=== PATIENT | male | born 1955 | race Caucasian/White ===

== ENCOUNTER 2019-07-05 15:05 | Emergency (ER) | payer BC ==
[~2019-07-05] VITALS: Ht 175.2 cm; Wt 63.5 kg
--- NOTE | ~2019-07-05 | EKG ---
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
[2019-07-05 16:24] LABS: BASO % 0.4 % (0.0-1.0); EOS # 0.1 10*3/uL (0.0-0.4); HEMATOCRIT 38.4 % (42.0-52.0); HEMOGLOBIN 12.5 g/dl (14.0-18.0); LYMPH # 0.9 10*3/uL (1.3-4.4); LYMPH % 9.7 % (27.0-41.0); MEAN CELL VOLUME 98.5 fl (80.0-94.0); MEAN CORPUSCULAR HGB 32.1 pg (27.0-31.0); MEAN CORPUSCULAR HGB CONC 32.6 g/dl (33.0-37.0); MEAN PLATELET VOLUME 10.3 fl (9.6-12.3); MONO # 0.9 10*3/uL (0.1-1.0); MONO % 10.1 % (3.0-9.0); NEUT # 7.3 10*3/uL (2.3-7.9); NEUT % 78.4 % (47.0-73.0); PLATELET COUNT AUTOMATED 269 10*3/uL (130-400); RED CELL DISTRI WIDTH 13.1 % (0-14.5); WHITE BLOOD COUNT 9.3 10*3/uL (4.8-10.8)
[2019-07-05 16:43] LABS: ALBUMIN 3.1 gm/dl (3.1-4.5); ALKALINE PHOSPHATASE 211 U/L (45-117); BUN 18 mg/dl (7-24); CHLORIDE 104 mmol/L (98-107); CREATININE 0.73 mg/dL (0.70-1.30); POTASSIUM 3.8 mmol/L (3.5-5.1); SGOT/AST 102 IU/L (3-35); SGPT/ALT 70 U/L (12-78); SODIUM 138 mmol/L (136-145); TOTAL PROTEIN 7.2 gm/dL (6.4-8.2)
[2019-07-05 16:50] LABS: TROPONIN I < 0.015 ng/ml (<0.045)
[2019-07-05 16:58] LABS: INTERNATIONAL NORM RATIO 0.9 (2.0-3.5)
== END 2019-07-05 19:30 | disposition home or self-care (01) ==
LOC: ED 15:05
PROVIDERS: Physician Assistant
DX: S00.01XA Abrasion of scalp, initial encounter (principal); E11.649 Type 2 diabetes mellitus with hypoglycemia without coma; R41.0 Disorientation, unspecified; R79.1 Abnormal coagulation profile; I10 Essential (primary) hypertension; Z79.4 Long term (current) use of insulin; V43.52XA Car driver injured in collision with other type car in traffic accident, initial encounter; Y93.89 Activity, other specified; Y92.89 Other specified places as the place of occurrence of the external cause; Y99.8 Other external cause status